=== PATIENT | male | born 1960 | race Caucasian/White ===

== ENCOUNTER 2021-09-02 06:38 | Inpatient (IN) ==
[~2021-09-02 06:38] MED LIST: Rocuronium 50 mg VIAL 10 mg/ml 5 ml VIAL (50 mg) ONE; Succinylcholine 200 mg VIAL 20 mg/ml 10 ml VIAL (200 mg) ONE
[2021-09-02] MEDS ORDERED: Etomidate 20 mg/10 ml 2 MG/ML 10 ml VIAL IV ONE (06:45)
[2021-09-02] MEDS ORDERED: Succinylcholine 200 mg VIAL 20 mg/ml 10 ml VIAL (200 mg) IV ONE (06:45)
[2021-09-02] MEDS ORDERED: Cefepime 1 GM in Dextrose 1 GM/50 ML BAG IV ONE (07:15)
[2021-09-02] MEDS ORDERED: Lactated Ringers 1000 ml BAG 1,000 ML IV ONE ×3 (07:15→10:01)
[2021-09-02] MEDS ORDERED: Vancomycin 1,500 MG in NS 0.9% 250 ml 250 ML IVPB ONE (07:15)
[2021-09-02] MEDS ORDERED: Propofol 10 mg/ml 100 ML BTL 100 ML IV ONE (07:15)
[2021-09-02 07:30] LABS: Hematocrit 40 % (42-52); Hemoglobin 13.4 g/dL (14.0-18.0); Mean Corpuscular HGB Conc 33 g/dL (31-36); Mean Corpuscular Hemoglobin 31 pg (27-31); Mean Corpuscular Volume 95 fL (80-94); Mean Platelet Volume 7.5 fL (7.4-10.4); Platelet Count 656 10^3/uL (150-450); Red Blood Count 4.25 10^6 /uL (4.18-5.48); Red Cell Distribution Width 14 % (10-15); White Blood Count 28.8 10^3/uL (3.5-10.8)
[2021-09-02 07:44] LABS: PCO2 Arterial 54 mmHg (35-45); PO2 Arterial 78 mmHg (80-100)
[2021-09-02 07:44] LABS: ALT 59 U/L (7-52); Albumin 2.2 g/dL (3.2-5.2); Albumin/Globulin Ratio 0.5 (1-3); Alkaline Phosphatase 144 U/L (35-149); Blood Urea Nitrogen 35 mg/dL (6-24); CO2 Carbon Dioxide 24 mmol/L (22-32); Calcium 7.1 mg/dL (8.6-10.3); Chloride 94 mmol/L (101-111); Globulin 4.1 g/dL (2-4); Glucose 142 mg/dL (70-100); Sodium 132 mmol/L (135-145); Total Protein 6.3 g/dL (6.4-8.9); eGFR CKD-EPI 77.2 (>60)
[2021-09-02] MEDS ORDERED: Piperacillin/Tazobac ADVAN 3.375 GM in NS 0.9% 100 ml BAG 100 ML IV ONE (07:46)
[2021-09-02 07:49] LABS: Troponin I 0.05 ng/mL (<0.03)
[2021-09-02] MEDS ORDERED: Zosyn per Pharmacy NOTE FOLLOW UP SCH (08:00)
[2021-09-02 08:23] LABS: Influenza A Molecular Negative (Negative); Influenza B Molecular Negative (Negative)
[2021-09-02 08:24] LABS: ABS Lymphocytes 1.1 10^3/ul (1.0-4.8); ABS Monocytes 0.2 10^3/ul (0-0.8); ABS Neutrophils 27.4 10^3/ul (1.5-7.7); Eosinophil % 0.1 %; Lymphocyte % 3.8 %
[2021-09-02 08:26] LABS: Urine Appearance Cloudy; Urine Bilirubin Negative (Negative); Urine Blood Negative (Negative); Urine Color Amber; Urine Glucose Negative (Negative); Urine Ketones Negative (Negative); Urine Nitrite Negative (Negative); Urine Protein Negative (Negative); Urine Specific Gravity 1.018 (1.002-1.030); Urine Urobilinogen Negative (Negative)
[2021-09-02 08:28] LABS: RBC Morphology Normal (Normal)
[2021-09-02 09:15] LABS: Rapid COVID-19 Molecular Undetected (Undetected)
[2021-09-02] MEDS: fentaNYL 100 mcg/2 ml 50 MCG/ML VIAL IV SLOW PU PRN ×5 (09:32→19:11)
[2021-09-02 09:48] LABS: Anion Gap 14 mmol/L (2-11)
[2021-09-02 09:55] LABS: Magnesium 2.3 mg/dL (1.9-2.7)
[2021-09-02 10:20] LABS: INR 1.55 (0.86-1.15)
[2021-09-02 11:38] LABS: Potassium Redraw 4.6 mmol/L (3.5-5.0)
[2021-09-02 11:48] LABS: Phosphorus 5.4 mg/dL (2.5-5.0)
[2021-09-02 12:24] LABS: Troponin I 0.24 ng/mL (<0.03)
[2021-09-02] MEDS ORDERED: Lactated Ringers 500 ml BAG 500 ML IV ONE (12:46)
[2021-09-02] MEDS: Chlorhexidine MOUTHWASH 0.12% 15 ML UDC TOPICAL SCH ×3 (12:51→20:58)
[2021-09-02] MEDS ORDERED: Vancomycin per Pharmacy 1 EA NOTE FOLLOW UP SCH (13:00)
[2021-09-02] MEDS ORDERED: Propofol 10 mg/ml 100 ML BTL 100 ML IV SCH ×2 (13:00)
[2021-09-02] MEDS ORDERED: fentaNYL 250 mcg/5 ml 50 MCG/ML 5 ml VIAL (250 MCG) ONE (13:56)
[2021-09-02] MEDS: Heparin 5000 UNITS/ML 1 mL VIAL SUBCUT SCH ×2 (13:58→23:12)
[2021-09-02] MEDS ORDERED: Norepinephrine 16MCG/ML IVPRE 4,000 MCG/250 ML BAG IV SCH (14:00)
[2021-09-02] MEDS: ZOSYN 3.375 GM Q8H per EXTENDED INFUSION IV SCH ×2 (15:30→22:55)
[2021-09-02 15:39] LABS: Troponin I 0.14 ng/mL (<0.03)
[2021-09-02] MEDS ORDERED: Acetaminophen IV 1 GM/100ML 100 ML IV PRN (16:50)
[2021-09-02] MEDS ORDERED: Propofol 10 mg/ml 100 ML BTL 0 ML ONE (17:05)
[2021-09-02] MEDS: fentaNYL INFUSION 50 mcg/mL VL 2,500 MCG/50 ML VIAL IV SCH (17:15)
[2021-09-02] MEDS ORDERED: Alteplase 10 MG/50 ML NS for CHEST TUBE instillation INTRAPLEUR ONE (18:00)
[2021-09-02] MEDS ORDERED: DORNASE ALFA 1 mg/ml 5 MG in NS 0.9% 50 ML INTRAPLEUR ONE (18:00)
[2021-09-02] MEDS ORDERED: ALTEPLASE ONE (18:00)
[2021-09-02] MEDS ORDERED: STERILE WATER FOR INJ ONE (18:00)
[2021-09-02 19:10] LABS: Troponin I 0.13 ng/mL (<0.03)
[2021-09-02] MEDS: Norepinephrine 16MCG/ML IVPRE 4,000 MCG/250 ML BAG IV SCH (19:53)
[2021-09-02] MEDS: Vancomycin 1000 MG in NS 0.9% 250 ML IVPB SCH (20:29)
[2021-09-03] MEDS: Chlorhexidine MOUTHWASH 0.12% 15 ML UDC TOPICAL SCH ×7 (00:31→21:19)
[2021-09-03] MEDS: fentaNYL INFUSION 50 mcg/mL VL 2,500 MCG/50 ML VIAL IV SCH ×2 (04:53→22:07)
[2021-09-03] MEDS: Heparin 5000 UNITS/ML 1 mL VIAL SUBCUT SCH ×3 (05:23→20:15)
[2021-09-03 05:27] LABS: Hematocrit 35 % (42-52); Hemoglobin 12.2 g/dL (14.0-18.0); Mean Corpuscular HGB Conc 35 g/dL (31-36); Mean Corpuscular Hemoglobin 32 pg (27-31); Mean Corpuscular Volume 92 fL (80-94); Mean Platelet Volume 7.1 fL (7.4-10.4); Platelet Count 521 10^3/uL (150-450); Red Blood Count 3.82 10^6 /uL (4.18-5.48); Red Cell Distribution Width 14 % (10-15); White Blood Count 20.1 10^3/uL (3.5-10.8)
[2021-09-03 05:28] LABS: ABS Basophils 0.1 10^3/ul (0-0.2); ABS Lymphocytes 0.6 10^3/ul (1.0-4.8); ABS Monocytes 0.1 10^3/ul (0-0.8); ABS Neutrophils 19.4 10^3/ul (1.5-7.7); Eosinophil % 0.1 %; Lymphocyte % 2.9 %
[2021-09-03 05:43] LABS: Activated Partial Thrombo Time 29.6 seconds (26.0-38.0); INR 1.47 (0.86-1.15)
[2021-09-03 05:45] LABS: Albumin/Globulin Ratio 0.6 (1-3); Calcium 7.5 mg/dL (8.6-10.3); Globulin 3.3 g/dL (2-4); Phosphorus 4.6 mg/dL (2.5-5.0); Potassium 4.8 mmol/L (3.5-5.0); Total Bilirubin 1.5 mg/dL (0.2-1.0); Total Protein 5.3 g/dL (6.4-8.9); eGFR CKD-EPI 97.5 (>60)
[2021-09-03] MEDS: ZOSYN 3.375 GM Q8H per EXTENDED INFUSION IV SCH ×3 (06:34→21:15)
[2021-09-03] MEDS: Pantoprazole VIAL 40 MG VIAL IV SCH (08:38)
[2021-09-03] MEDS: fentaNYL 100 mcg/2 ml 50 MCG/ML VIAL IV SLOW PU PRN (08:45)
[2021-09-03] MEDS ORDERED: Lorazepam PYXIS KEY PRN (08:46)
[2021-09-03] MEDS ORDERED: Lorazepam PYXIS KEY ONE (08:47)
[2021-09-03] MEDS ORDERED: LORazepam 2 mg VIAL 1 ml ONE (08:48)
[2021-09-03] MEDS: LORazepam 2 mg VIAL 1 ml IV PUSH PRN (08:52)
[2021-09-03] MEDS ORDERED: Metoprolol Tartrate 5 mg VIAL 5 ml VIAL (1 mg/ml) ONE (08:58)
[2021-09-03] MEDS ORDERED: Metoprolol Tartrate 5 mg VIAL 5 ml VIAL (1 mg/ml) IV ONE (08:59)
[2021-09-03] MEDS ORDERED: Alteplase 10 MG/50 ML NS for CHEST TUBE instillation INTRAPLEUR ONE (09:00)
[2021-09-03] MEDS ORDERED: DORNASE ALFA 1 mg/ml 5 MG in NS 0.9% 50 ML INTRAPLEUR ONE (09:00)
[2021-09-03] MEDS: Vancomycin 1000 MG in NS 0.9% 250 ML IVPB SCH ×2 (10:00→19:48)
[2021-09-03] MEDS: Lactated Ringers 1000 ml BAG 1,000 ML IV SCH ×2 (11:15→17:48)
[2021-09-03] MEDS ORDERED: Perflutren Lipid Microsphere 3 ML VIAL ONE (11:29)
[2021-09-03] MEDS: Norepinephrine 16MCG/ML IVPRE 4,000 MCG/250 ML BAG IV SCH (12:23)
[2021-09-03] MEDS: PHENYLEPHRINE DRIP IVPREMIX 50 MG/250 ML BAG IV SCH ×2 (13:01→20:03)
[2021-09-03] MEDS ORDERED: Hydrocortisone INJ 250 MG VIAL IV ONE (14:02)
[2021-09-03] MEDS: Metoprolol Tartrate 5 mg VIAL 5 ml VIAL (1 mg/ml) IV PRN ×2 (15:06→21:00)
[2021-09-03 17:22] LABS: Anion Gap 7 mmol/L (2-11); Blood Urea Nitrogen 36 mg/dL (6-24); CO2 Carbon Dioxide 27 mmol/L (22-32); Calcium 7.5 mg/dL (8.6-10.3); Chloride 101 mmol/L (101-111); Glucose 86 mg/dL (70-100); Potassium 4.9 mmol/L (3.5-5.0); Sodium 135 mmol/L (135-145); eGFR CKD-EPI 91.1 (>60)
[2021-09-03 17:38] LABS: Troponin I 0.07 ng/mL (<0.03)
[2021-09-03] MEDS ORDERED: Diltiazem IV push/loading dose 5 MG/ML 5 ML vial (25 mg) IV SLOW PU ONE ×2 (18:06)
[2021-09-03] MEDS ORDERED: Diltiazem IV push/loading dose 5 MG/ML 5 ML vial (25 mg) ONE (18:10)
[2021-09-03 19:44] LABS: Magnesium 2.3 mg/dL (1.9-2.7); Phosphorus 4.9 mg/dL (2.5-5.0)
[2021-09-03] MEDS: Hydrocortisone INJ 100 MG/2ML 2 ML VIAL IV SCH (20:16)
[2021-09-04] MEDS: Chlorhexidine MOUTHWASH 0.12% 15 ML UDC TOPICAL SCH ×6 (01:12→22:42)
[2021-09-04] MEDS ORDERED: DORNASE ALFA 1 mg/ml(NF) 5 MG in NS 0.9% 50 ML 45 ML INTRAPLEUR ONE (01:30)
[2021-09-04] MEDS ORDERED: Alteplase (CATHFLO) 10 MG in NS 0.9% 50 ML 40 ML INTRAPLEUR ONE (01:30)
[2021-09-04] MEDS: Lactated Ringers 1000 ml BAG 1,000 ML IV SCH ×3 (01:51→15:12)
[2021-09-04] MEDS: PHENYLEPHRINE DRIP IVPREMIX 50 MG/250 ML BAG IV SCH ×4 (01:58→21:32)
[2021-09-04 03:52] LABS: Hematocrit 36 % (42-52); Hemoglobin 11.9 g/dL (14.0-18.0); Mean Corpuscular HGB Conc 33 g/dL (31-36); Mean Corpuscular Hemoglobin 31 pg (27-31); Mean Corpuscular Volume 93 fL (80-94); Mean Platelet Volume 7.1 fL (7.4-10.4); Platelet Count 658 10^3/uL (150-450); Red Blood Count 3.85 10^6 /uL (4.18-5.48); Red Cell Distribution Width 15 % (10-15); White Blood Count 21.1 10^3/uL (3.5-10.8)
[2021-09-04] MEDS: Heparin 5000 UNITS/ML 1 mL VIAL SUBCUT SCH ×3 (04:04→21:22)
[2021-09-04] MEDS: Hydrocortisone INJ 100 MG/2ML 2 ML VIAL IV SCH ×3 (04:04→21:19)
[2021-09-04 04:08] LABS: Albumin 1.8 g/dL (3.2-5.2); Albumin/Globulin Ratio 0.6 (1-3); Calcium 7.4 mg/dL (8.6-10.3); Magnesium 2.4 mg/dL (1.9-2.7); Phosphorus 4.8 mg/dL (2.5-5.0); Potassium 4.8 mmol/L (3.5-5.0); Total Bilirubin 0.8 mg/dL (0.2-1.0); Total Protein 4.8 g/dL (6.4-8.9); eGFR CKD-EPI 92.2 (>60)
[2021-09-04 04:52] LABS: ABS Lymphocytes 0.7 10^3/ul (1.0-4.8); ABS Monocytes 0.4 10^3/ul (0-0.8); ABS Neutrophils 19.9 10^3/ul (1.5-7.7); Eosinophil % 0.1 %; Lymphocyte % 3.4 %
[2021-09-04] MEDS: ZOSYN 3.375 GM Q8H per EXTENDED INFUSION IV SCH ×3 (06:24→22:42)
[2021-09-04] MEDS ORDERED: Polyethylene Glycol 3350 17 GM PACKET PO PRN (08:20)
[2021-09-04] MEDS ORDERED: Vancomycin Trough Check NOTE FOLLOW UP ONE (08:30)
[2021-09-04 08:38] LABS: PCO2 Arterial 49 mmHg (35-45); PO2 Arterial 90 mmHg (80-100)
[2021-09-04 08:47] LABS: Vancomycin Trough 7.3 mcg/mL
[2021-09-04] MEDS ORDERED: Senna TAB 8.6 mg TAB PO SCH (09:00)
[2021-09-04] MEDS ORDERED: Docusate LIQ 100 MG/10 ML UDC PO SCH (09:00)
[2021-09-04] MEDS: Vancomycin 1000 MG in NS 0.9% 250 ML IVPB SCH ×2 (09:37→17:30)
[2021-09-04] MEDS: Magnesium Hydroxide LIQ 30 ML UDC PO SCH ×2 (09:38→20:17)
[2021-09-04] MEDS: Pantoprazole VIAL 40 MG VIAL IV SCH (09:38)
[2021-09-04] MEDS ORDERED: Midazolam 5 mg/5 ml VIAL 1 mg/ml 5 ml VIAL (5 mg) ONE (10:52)
[2021-09-04] MEDS ORDERED: fentaNYL 100 mcg/2 ml 50 MCG/ML VIAL ONE (10:52)
[2021-09-04] MEDS ORDERED: Propofol 10 MG/ML 20 ML BTL ONE (11:23)
[2021-09-04] MEDS: LORazepam 2 mg VIAL 1 ml IV PUSH PRN (13:27)
[2021-09-04] MEDS ORDERED: Phenylephrine IV 10 MG/ML 1 ml VIAL ONE (14:03)
[2021-09-04] MEDS ORDERED: Lactated Ringers 1000 ml BAG 1,000 ML IV SCH (18:49)
[2021-09-04] MEDS: fentaNYL INFUSION 50 mcg/mL VL 2,500 MCG/50 ML VIAL IV SCH (18:59)
[2021-09-05] MEDS: Vancomycin 1000 MG in NS 0.9% 250 ML IVPB SCH ×3 (00:27→16:26)
[2021-09-05] MEDS: Chlorhexidine MOUTHWASH 0.12% 15 ML UDC TOPICAL SCH ×6 (03:17→22:59)
[2021-09-05] MEDS: Hydrocortisone INJ 100 MG/2ML 2 ML VIAL IV SCH ×2 (05:31→13:44)
[2021-09-05] MEDS: Heparin 5000 UNITS/ML 1 mL VIAL SUBCUT SCH ×3 (05:31→22:22)
[2021-09-05 05:34] LABS: Hematocrit 30 % (42-52); Hemoglobin 9.9 g/dL (14.0-18.0); Mean Corpuscular HGB Conc 33 g/dL (31-36); Mean Corpuscular Hemoglobin 31 pg (27-31); Mean Corpuscular Volume 94 fL (80-94); Mean Platelet Volume 6.8 fL (7.4-10.4); Platelet Count 476 10^3/uL (150-450); Red Blood Count 3.22 10^6 /uL (4.18-5.48); Red Cell Distribution Width 14 % (10-15); White Blood Count 13.2 10^3/uL (3.5-10.8)
[2021-09-05 05:39] LABS: ABS Lymphocytes 0.7 10^3/ul (1.0-4.8); ABS Monocytes 0.2 10^3/ul (0-0.8); ABS Neutrophils 12.3 10^3/ul (1.5-7.7); Lymphocyte % 5.1 %
[2021-09-05 05:50] LABS: ALT 33 U/L (7-52); AST 53 U/L (13-39); Albumin < 1.7 g/dL (3.2-5.2); Albumin/Globulin Ratio 0.6 (1-3); Alkaline Phosphatase 78 U/L (35-149); Anion Gap 3 mmol/L (2-11); Blood Urea Nitrogen 42 mg/dL (6-24); CO2 Carbon Dioxide 29 mmol/L (22-32); Calcium 7.3 mg/dL (8.6-10.3); Chloride 110 mmol/L (101-111); Globulin 2.8 g/dL (2-4); Glucose 158 mg/dL (70-100); Magnesium 2.6 mg/dL (1.9-2.7); Phosphorus 2.9 mg/dL (2.5-5.0); Potassium 4.9 mmol/L (3.5-5.0); Sodium 142 mmol/L (135-145); Total Protein 4.5 g/dL (6.4-8.9); eGFR CKD-EPI 88.8 (>60)
[2021-09-05] MEDS: ZOSYN 3.375 GM Q8H per EXTENDED INFUSION IV SCH ×3 (05:52→22:22)
[2021-09-05] MEDS: PHENYLEPHRINE DRIP IVPREMIX 50 MG/250 ML BAG IV SCH (06:27)
[2021-09-05] MEDS: Magnesium Hydroxide LIQ 30 ML UDC PO SCH ×2 (09:05→20:36)
[2021-09-05] MEDS: Polyethylene Glycol 3350 17 GM PACKET PO SCH (09:05)
[2021-09-05] MEDS: Docusate LIQ 100 MG/10 ML UDC PO SCH ×2 (09:05→20:36)
[2021-09-05] MEDS: Senna TAB 8.6 mg TAB PO SCH ×2 (09:05→20:36)
[2021-09-05] MEDS: Pantoprazole VIAL 40 MG VIAL IV SCH (09:05)
[2021-09-05] MEDS ORDERED: DORNASE ALFA 1 mg/ml(NF) 5 MG in NS 0.9% 50 ML 45 ML INTRAPLEUR SCH ×2 (14:00→16:00)
[2021-09-05] MEDS: fentaNYL INFUSION 50 mcg/mL VL 2,500 MCG/50 ML VIAL IV SCH (15:36)
[2021-09-05] MEDS ORDERED: Alteplase (CATHFLO) 10 MG in NS 0.9% 50 ML 40 ML INTRAPLEUR SCH (16:00)
[2021-09-05] MEDS ORDERED: Vancomycin Trough Check NOTE FOLLOW UP ONE (16:30)
[2021-09-06] MEDS: Hydrocortisone INJ 100 MG/2ML 2 ML VIAL IV SCH ×2 (02:47→14:38)
[2021-09-06] MEDS: Chlorhexidine MOUTHWASH 0.12% 15 ML UDC TOPICAL SCH ×6 (02:52→22:41)
[2021-09-06 05:48] LABS: Hematocrit 28 % (42-52); Hemoglobin 9.5 g/dL (14.0-18.0); Mean Corpuscular HGB Conc 34 g/dL (31-36); Mean Corpuscular Hemoglobin 31 pg (27-31); Mean Corpuscular Volume 94 fL (80-94); Mean Platelet Volume 6.8 fL (7.4-10.4); Platelet Count 381 10^3/uL (150-450); Red Blood Count 3.01 10^6 /uL (4.18-5.48); Red Cell Distribution Width 14 % (10-15); White Blood Count 8.9 10^3/uL (3.5-10.8)
[2021-09-06] MEDS: Heparin 5000 UNITS/ML 1 mL VIAL SUBCUT SCH ×4 (05:48→22:43)
[2021-09-06 05:53] LABS: INR 1.12 (0.86-1.15)
[2021-09-06] MEDS ORDERED: Vancomycin 1,250 MG in NS 0.9% 250 ml 250 ML IVPB SCH (06:00)
[2021-09-06 06:01] LABS: Calcium 7.3 mg/dL (8.6-10.3); Magnesium 2.6 mg/dL (1.9-2.7)
[2021-09-06 06:06] LABS: Phosphorus 2.7 mg/dL (2.5-5.0); eGFR CKD-EPI 89.9 (>60)
[2021-09-06] MEDS: ZOSYN 3.375 GM Q8H per EXTENDED INFUSION IV SCH ×3 (06:11→22:46)
[2021-09-06] MEDS: Pantoprazole VIAL 40 MG VIAL IV SCH (07:49)
[2021-09-06] MEDS ORDERED: Magnesium CITRATE LIQ 300 ML BTL PO ONE (08:00)
[2021-09-06] MEDS ORDERED: Methylnaltrexone SQ (NF) 12 MG/0.6 ML VIAL SUBCUT ONE (08:04)
[2021-09-06] MEDS ORDERED: Furosemide 20 mg/2 ml IV VIAL IV SLOW PU ONE ×2 (10:41→17:45)
[2021-09-06] MEDS: Docusate LIQ 100 MG/10 ML UDC PO SCH (11:44)
[2021-09-06] MEDS: Magnesium Hydroxide LIQ 30 ML UDC PO SCH (11:45)
[2021-09-06] MEDS: Polyethylene Glycol 3350 17 GM PACKET PO SCH (11:45)
[2021-09-06] MEDS: Senna TAB 8.6 mg TAB PO SCH (11:45)
[2021-09-06] MEDS ORDERED: Midazolam 2 mg/2 ml VIAL 1 mg/ml 2 ml VIAL (2 mg) ONE (12:43)
[2021-09-06] MEDS ORDERED: Lidocaine 1% VIAL 10 MG/ML VIAL ONE (12:43)
[2021-09-06] MEDS ORDERED: Midazolam 2 mg/2 ml VIAL 1 mg/ml 2 ml VIAL (2 mg) IV SLOW PU ONE (13:10)
[2021-09-06] MEDS: fentaNYL INFUSION 50 mcg/mL VL 2,500 MCG/50 ML VIAL IV SCH (14:30)
[2021-09-07] MEDS: Chlorhexidine MOUTHWASH 0.12% 15 ML UDC TOPICAL SCH ×3 (03:31→11:09)
[2021-09-07] MEDS: Hydrocortisone INJ 100 MG/2ML 2 ML VIAL IV SCH (03:31)
[2021-09-07] MEDS ORDERED: Vancomycin Trough Check NOTE FOLLOW UP ONE (05:30)
[2021-09-07] MEDS: Heparin 5000 UNITS/ML 1 mL VIAL SUBCUT SCH ×4 (05:37→22:12)
[2021-09-07 06:01] LABS: Calcium 7.5 mg/dL (8.6-10.3); Magnesium 2.5 mg/dL (1.9-2.7); Phosphorus 2.9 mg/dL (2.5-5.0); Potassium 3.8 mmol/L (3.5-5.0); eGFR CKD-EPI 80.8 (>60)
[2021-09-07] MEDS: ZOSYN 3.375 GM Q8H per EXTENDED INFUSION IV SCH ×3 (06:03→22:00)
[2021-09-07] MEDS ORDERED: Potassium Chloride LIQUID 20 MEQ/15 ML LIQUID PO ONE (06:48)
[2021-09-07] MEDS ORDERED: Furosemide 20 mg/2 ml IV VIAL IV SLOW PU ONE (08:51)
[2021-09-07] MEDS ORDERED: Hydrocortisone INJ 100 MG/2ML 2 ML VIAL ONE (08:53)
[2021-09-07] MEDS: Pantoprazole VIAL 40 MG VIAL IV SCH (09:02)
[2021-09-07] MEDS ORDERED: Haloperidol 5 mg/ml SDV IV/IM 5 MG/ML AMP IV SLOW PU ONE (21:42)
[2021-09-08] MEDS ORDERED: Haloperidol 5 mg/ml SDV IV/IM 5 MG/ML AMP IV SLOW PU ONE (05:22)
[2021-09-08] MEDS: Heparin 5000 UNITS/ML 1 mL VIAL SUBCUT SCH ×3 (05:52→21:31)
[2021-09-08] MEDS: ZOSYN 3.375 GM Q8H per EXTENDED INFUSION IV SCH (05:52)
[2021-09-08] MEDS ORDERED: Hydrocortisone INJ 100 MG/2ML 2 ML VIAL IV SCH (06:00)
[2021-09-08 07:39] LABS: Calcium 7.3 mg/dL (8.6-10.3); Potassium 3.5 mmol/L (3.5-5.0)
[2021-09-08 07:44] LABS: Phosphorus 3.1 mg/dL (2.5-5.0); eGFR CKD-EPI 98.9 (>60)
[2021-09-08] MEDS: Pantoprazole VIAL 40 MG VIAL IV SCH (08:47)
[2021-09-08] MEDS: Oxacillin 2 GM in NS 0.9% 100 ml BAG 100 ML IVPB SCH ×3 (10:23→21:31)
[2021-09-08] MEDS: Chlorhexidine MOUTHWASH 0.12% 15 ML UDC TOPICAL SCH (14:14)
[2021-09-09] MEDS: Oxacillin 2 GM in NS 0.9% 100 ml BAG 100 ML IVPB SCH ×4 (03:37→21:49)
[2021-09-09 04:21] LABS: Hematocrit 29 % (42-52); Mean Corpuscular HGB Conc 35 g/dL (31-36); Mean Corpuscular Hemoglobin 32 pg (27-31); Mean Corpuscular Volume 91 fL (80-94); Mean Platelet Volume 7.2 fL (7.4-10.4); Platelet Count 436 10^3/uL (150-450); Red Blood Count 3.18 10^6 /uL (4.18-5.48); Red Cell Distribution Width 14 % (10-15)
[2021-09-09 04:38] LABS: Calcium 7.3 mg/dL (8.6-10.3); Magnesium 1.9 mg/dL (1.9-2.7); Phosphorus 3.1 mg/dL (2.5-5.0); eGFR CKD-EPI 99.9 (>60)
[2021-09-09] MEDS ORDERED: Potassium Chloride LIQUID 20 MEQ/15 ML LIQUID PO ONE (04:52)
[2021-09-09] MEDS: KCL 20 MEQ/100 ML IVPREMIX 20 MEQ/100 ML BAG IV SCH ×3 (05:14→09:52)
[2021-09-09] MEDS: Heparin 5000 UNITS/ML 1 mL VIAL SUBCUT SCH ×4 (05:48→21:49)
[2021-09-09] MEDS: Pantoprazole VIAL 40 MG VIAL IV SCH (08:12)
[2021-09-09] MEDS ORDERED: Magnesium Sulfate IV 1GM/100ML 1 GM/100 ML BAG IV ONE (09:00)
[2021-09-10] MEDS: Oxacillin 2 GM in NS 0.9% 100 ml BAG 100 ML IVPB SCH ×4 (04:33→20:23)
[2021-09-10 05:19] LABS: Calcium 7.2 mg/dL (8.6-10.3); Phosphorus 2.4 mg/dL (2.5-5.0); Potassium 3.5 mmol/L (3.5-5.0); eGFR CKD-EPI 106.2 (>60)
[2021-09-10] MEDS: Heparin 5000 UNITS/ML 1 mL VIAL SUBCUT SCH ×3 (05:55→20:23)
[2021-09-10] MEDS: KCL 20 MEQ/100 ML IVPREMIX 20 MEQ/100 ML BAG IV SCH ×2 (09:04→11:51)
[2021-09-10] MEDS: Pantoprazole VIAL 40 MG VIAL IV SCH (09:04)
[2021-09-11] MEDS: Oxacillin 2 GM in NS 0.9% 100 ml BAG 100 ML IVPB SCH ×4 (03:50→20:26)
[2021-09-11 05:08] LABS: Hematocrit 31 % (42-52); Hemoglobin 10.3 g/dL (14.0-18.0); Mean Corpuscular HGB Conc 34 g/dL (31-36); Mean Corpuscular Hemoglobin 31 pg (27-31); Mean Corpuscular Volume 92 fL (80-94); Mean Platelet Volume 7.4 fL (7.4-10.4); Platelet Count 503 10^3/uL (150-450); Red Blood Count 3.32 10^6 /uL (4.18-5.48); Red Cell Distribution Width 15 % (10-15); White Blood Count 11.7 10^3/uL (3.5-10.8)
[2021-09-11 05:28] LABS: ABS Eosinophils 0.2 10^3/ul (0-0.6); ABS Lymphocytes 1.2 10^3/ul (1.0-4.8); ABS Monocytes 0.5 10^3/ul (0-0.8); ABS Neutrophils 9.7 10^3/ul (1.5-7.7); Eosinophil % 1.7 %; Lymphocyte % 10.6 %
[2021-09-11 05:33] LABS: Calcium 7.3 mg/dL (8.6-10.3); Magnesium 1.8 mg/dL (1.9-2.7); Phosphorus 2.4 mg/dL (2.5-5.0); Potassium 3.7 mmol/L (3.5-5.0); eGFR CKD-EPI 107.7 (>60)
[2021-09-11] MEDS: Heparin 5000 UNITS/ML 1 mL VIAL SUBCUT SCH ×3 (06:06→20:26)
[2021-09-11] MEDS ORDERED: Potassium Chlor 20 meq TAB.ER PO ONE (07:39)
[2021-09-11] MEDS ORDERED: Magnesium Sulfate 2 gm BAG 2 GM/50 ML BAG IVPB ONE (07:40)
[2021-09-11] MEDS ORDERED: Potassium Phosphate IV 15 MMOLE in NS 0.9% 250 ml 250 ML IVPB ONE (07:41)
[2021-09-11] MEDS: Pantoprazole VIAL 40 MG VIAL IV SCH (08:01)
[2021-09-12] MEDS: Oxacillin 2 GM in NS 0.9% 100 ml BAG 100 ML IVPB SCH ×4 (04:22→21:57)
[2021-09-12 04:26] LABS: ABS Eosinophils 0.2 10^3/ul (0-0.6); ABS Lymphocytes 1.2 10^3/ul (1.0-4.8); ABS Monocytes 0.6 10^3/ul (0-0.8); ABS Neutrophils 11.3 10^3/ul (1.5-7.7); Eosinophil % 1.7 %; Hematocrit 33 % (42-52); Hemoglobin 11.1 g/dL (14.0-18.0); Lymphocyte % 8.9 %; Mean Corpuscular HGB Conc 33 g/dL (31-36); Mean Corpuscular Hemoglobin 31 pg (27-31); Mean Corpuscular Volume 93 fL (80-94); Mean Platelet Volume 7.2 fL (7.4-10.4); Platelet Count 565 10^3/uL (150-450); Red Blood Count 3.58 10^6 /uL (4.18-5.48); Red Cell Distribution Width 14 % (10-15); White Blood Count 13.4 10^3/uL (3.5-10.8)
[2021-09-12 04:44] LABS: Calcium 7.4 mg/dL (8.6-10.3); Phosphorus 2.6 mg/dL (2.5-5.0); Potassium 3.7 mmol/L (3.5-5.0); eGFR CKD-EPI 102.3 (>60)
[2021-09-12] MEDS: Heparin 5000 UNITS/ML 1 mL VIAL SUBCUT SCH ×3 (05:41→21:57)
[2021-09-12] MEDS ORDERED: Potassium Chlor 20 meq TAB.ER PO ONE (07:02)
[2021-09-12] MEDS ORDERED: Furosemide 40 mg/4 ml IV VIAL IV SLOW PU ONE (09:01)
[2021-09-12] MEDS ORDERED: Albuterol HFA INHALER 8 gm MDI INH PRN (09:01)
[2021-09-12] MEDS ORDERED: Albuterol HFA INHALER 8 gm MDI INH SCH (11:00)
[2021-09-13 00:16] LABS: Calcium 7.3 mg/dL (8.6-10.3); Magnesium 1.6 mg/dL (1.9-2.7); Potassium 3.5 mmol/L (3.5-5.0); eGFR CKD-EPI 101.5 (>60)
[2021-09-13] MEDS ORDERED: Potassium Chlor 20 meq TAB.ER PO ONE (00:31)
[2021-09-13] MEDS ORDERED: Magnesium Sulfate 2 gm BAG 2 GM/50 ML BAG IVPB ONE (00:31)
[2021-09-13] MEDS: Oxacillin 2 GM in NS 0.9% 100 ml BAG 100 ML IVPB SCH ×2 (04:55→10:04)
[2021-09-13 06:15] LABS: ABS Basophils 0.1 10^3/ul (0-0.2); ABS Eosinophils 0.1 10^3/ul (0-0.6); ABS Monocytes 0.9 10^3/ul (0-0.8); ABS Neutrophils 9.5 10^3/ul (1.5-7.7); Eosinophil % 1.3 %; Hematocrit 31 % (42-52); Hemoglobin 10.3 g/dL (14.0-18.0); Lymphocyte % 8.6 %; Mean Corpuscular HGB Conc 34 g/dL (31-36); Mean Corpuscular Hemoglobin 31 pg (27-31); Mean Corpuscular Volume 93 fL (80-94); Mean Platelet Volume 7.7 fL (7.4-10.4); Platelet Count 521 10^3/uL (150-450); Red Blood Count 3.32 10^6 /uL (4.18-5.48); Red Cell Distribution Width 15 % (10-15); White Blood Count 11.6 10^3/uL (3.5-10.8)
[2021-09-13] MEDS: Heparin 5000 UNITS/ML 1 mL VIAL SUBCUT SCH ×3 (06:21→23:05)
[2021-09-13 06:38] LABS: Calcium 7.4 mg/dL (8.6-10.3); Phosphorus 2.8 mg/dL (2.5-5.0); Potassium 3.8 mmol/L (3.5-5.0); eGFR CKD-EPI 103.9 (>60)
[2021-09-13 11:19] LABS: C Reactive Protein 78.85 mg/L (<8.01)
[2021-09-13] MEDS: ceFAZolin 2 GM in NS PREMIX 2 GM/100 ML BAG IVPB SCH (20:41)
[2021-09-14] MEDS: ceFAZolin 2 GM in NS PREMIX 2 GM/100 ML BAG IVPB SCH ×3 (05:28→12:09)
[2021-09-14] MEDS: Heparin 5000 UNITS/ML 1 mL VIAL SUBCUT SCH ×2 (05:28→15:34)
[2021-09-14] MEDS ORDERED: diPHENhydraMINE IV 50 MG/ML 1 ml VIAL (BENADRYL) IV ONE (05:35)
[2021-09-14] MEDS ORDERED: Clindamycin 600 MG/D5W BAG 600 MG/50 ML BAG IV SCH (06:00)
[2021-09-14 07:03] LABS: ABS Eosinophils 0.2 10^3/ul (0-0.6); ABS Lymphocytes 1.1 10^3/ul (1.0-4.8); ABS Monocytes 0.9 10^3/ul (0-0.8); Eosinophil % 2.1 %; Hematocrit 29 % (42-52); Lymphocyte % 10.5 %; Mean Corpuscular HGB Conc 34 g/dL (31-36); Mean Corpuscular Hemoglobin 32 pg (27-31); Mean Corpuscular Volume 93 fL (80-94); Mean Platelet Volume 7.6 fL (7.4-10.4); Platelet Count 600 10^3/uL (150-450); Red Blood Count 3.17 10^6 /uL (4.18-5.48); Red Cell Distribution Width 15 % (10-15); White Blood Count 10.2 10^3/uL (3.5-10.8)
[2021-09-14 07:23] LABS: Calcium 7.3 mg/dL (8.6-10.3); Magnesium 1.6 mg/dL (1.9-2.7); Phosphorus 2.3 mg/dL (2.5-5.0); Potassium 3.6 mmol/L (3.5-5.0); eGFR CKD-EPI 105.8 (>60)
[2021-09-14] MEDS ORDERED: ceFAZolin VIAL 2 GM in NS 0.9% 100 ml BAG 100 ML IVPB SCH (12:00)
[2021-09-15] MEDS: ceFAZolin 2 GM in NS PREMIX 2 GM/100 ML BAG IVPB SCH ×4 (00:16→21:13)
[2021-09-15] MEDS: Heparin 5000 UNITS/ML 1 mL VIAL SUBCUT SCH ×4 (00:16→22:13)
[2021-09-15] MEDS: diPHENhydraMINE 25 mg TAB PO PRN ×2 (00:41→14:37)
[2021-09-15 11:32] LABS: ABS Basophils 0.1 10^3/ul (0-0.2); ABS Eosinophils 0.3 10^3/ul (0-0.6); ABS Lymphocytes 1.3 10^3/ul (1.0-4.8); ABS Monocytes 0.9 10^3/ul (0-0.8); ABS Neutrophils 8.8 10^3/ul (1.5-7.7); Eosinophil % 2.2 %; Hematocrit 34 % (42-52); Hemoglobin 11.5 g/dL (14.0-18.0); Lymphocyte % 11.2 %; Mean Corpuscular HGB Conc 34 g/dL (31-36); Mean Corpuscular Hemoglobin 31 pg (27-31); Mean Corpuscular Volume 92 fL (80-94); Mean Platelet Volume 7.6 fL (7.4-10.4); Platelet Count 726 10^3/uL (150-450); Red Blood Count 3.71 10^6 /uL (4.18-5.48); Red Cell Distribution Width 16 % (10-15); White Blood Count 11.4 10^3/uL (3.5-10.8)
[2021-09-15 11:59] LABS: Albumin 2.5 g/dL (3.2-5.2); Albumin/Globulin Ratio 0.7 (1-3); C Reactive Protein 65.94 mg/L (<8.01); Calcium 8.2 mg/dL (8.6-10.3); Globulin 3.6 g/dL (2-4); Magnesium 1.8 mg/dL (1.9-2.7); Potassium 3.9 mmol/L (3.5-5.0); Total Bilirubin 0.6 mg/dL (0.2-1.0); Total Protein 6.1 g/dL (6.4-8.9); eGFR CKD-EPI 103.9 (>60)
[2021-09-15] MEDS ORDERED: Magnesium Sulfate 2 gm BAG 2 GM/50 ML BAG IVPB ONE (14:56)
[2021-09-16] MEDS: ceFAZolin 2 GM in NS PREMIX 2 GM/100 ML BAG IVPB SCH ×3 (03:19→20:28)
[2021-09-16] MEDS: Heparin 5000 UNITS/ML 1 mL VIAL SUBCUT SCH ×3 (06:24→22:38)
[2021-09-16 07:23] LABS: Albumin 2.3 g/dL (3.2-5.2); Albumin/Globulin Ratio 0.8 (1-3); C Reactive Protein 48.27 mg/L (<8.01); Calcium 7.6 mg/dL (8.6-10.3); Potassium 3.9 mmol/L (3.5-5.0); Total Bilirubin 0.5 mg/dL (0.2-1.0); Total Protein 5.3 g/dL (6.4-8.9); eGFR CKD-EPI 103.5 (>60)
[2021-09-16 07:42] LABS: ABS Basophils 0.1 10^3/ul (0-0.2); ABS Eosinophils 0.2 10^3/ul (0-0.6); ABS Lymphocytes 1.3 10^3/ul (1.0-4.8); ABS Monocytes 0.7 10^3/ul (0-0.8); Eosinophil % 2.8 %; Hematocrit 31 % (42-52); Hemoglobin 10.2 g/dL (14.0-18.0); Lymphocyte % 15.3 %; Mean Corpuscular HGB Conc 33 g/dL (31-36); Mean Corpuscular Hemoglobin 31 pg (27-31); Mean Corpuscular Volume 95 fL (80-94); Mean Platelet Volume 7.4 fL (7.4-10.4); Platelet Count 592 10^3/uL (150-450); Red Blood Count 3.29 10^6 /uL (4.18-5.48); Red Cell Distribution Width 16 % (10-15); White Blood Count 8.3 10^3/uL (3.5-10.8)
[2021-09-17] MEDS: ceFAZolin 2 GM in NS PREMIX 2 GM/100 ML BAG IVPB SCH ×3 (03:39→20:37)
[2021-09-17] MEDS: Heparin 5000 UNITS/ML 1 mL VIAL SUBCUT SCH ×3 (06:08→20:36)
[2021-09-18] MEDS: ceFAZolin 2 GM in NS PREMIX 2 GM/100 ML BAG IVPB SCH ×3 (04:16→21:14)
[2021-09-18] MEDS: Heparin 5000 UNITS/ML 1 mL VIAL SUBCUT SCH ×3 (05:51→21:18)
[2021-09-18 18:32] LABS: Hematocrit 24 % (42-52); Hemoglobin 8.3 g/dL (14.0-18.0); Mean Corpuscular HGB Conc 34 g/dL (31-36); Mean Corpuscular Hemoglobin 32 pg (27-31); Mean Corpuscular Volume 94 fL (80-94); Mean Platelet Volume 7.7 fL (7.4-10.4); Platelet Count 486 10^3/uL (150-450); Red Blood Count 2.59 10^6 /uL (4.18-5.48); Red Cell Distribution Width 16 % (10-15); White Blood Count 7.5 10^3/uL (3.5-10.8)
[2021-09-18 18:45] LABS: Albumin 2.2 g/dL (3.2-5.2); Albumin/Globulin Ratio 0.7 (1-3); C Reactive Protein 15.65 mg/L (<8.01); Calcium 7.6 mg/dL (8.6-10.3); Globulin 3.1 g/dL (2-4); Total Bilirubin 0.4 mg/dL (0.2-1.0); Total Protein 5.3 g/dL (6.4-8.9); eGFR CKD-EPI 103.5 (>60)
[2021-09-18 20:11] LABS: ABS Eosinophils 0.4 10^3/ul (0-0.6); ABS Lymphocytes 1.1 10^3/ul (1.0-4.8); ABS Monocytes 0.6 10^3/ul (0-0.8); ABS Neutrophils 5.3 10^3/ul (1.5-7.7); Eosinophil % 5.4 %; Lymphocyte % 15.2 %; Nucleated Red Blood Cells % 0.1
[2021-09-19] MEDS: ceFAZolin 2 GM in NS PREMIX 2 GM/100 ML BAG IVPB SCH ×3 (04:38→20:09)
[2021-09-19] MEDS: Heparin 5000 UNITS/ML 1 mL VIAL SUBCUT SCH ×3 (06:40→23:44)
[2021-09-20] MEDS: ceFAZolin 2 GM in NS PREMIX 2 GM/100 ML BAG IVPB SCH ×3 (04:36→20:15)
[2021-09-20] MEDS: Heparin 5000 UNITS/ML 1 mL VIAL SUBCUT SCH ×3 (05:44→21:38)
[2021-09-21] MEDS: ceFAZolin 2 GM in NS PREMIX 2 GM/100 ML BAG IVPB SCH ×2 (05:35→12:31)
[2021-09-21] MEDS: Heparin 5000 UNITS/ML 1 mL VIAL SUBCUT SCH ×2 (06:28→13:43)
[2021-09-21 06:49] LABS: ABS Eosinophils 0.7 10^3/ul (0-0.6); ABS Monocytes 0.6 10^3/ul (0-0.8); ABS Neutrophils 5.7 10^3/ul (1.5-7.7); Eosinophil % 8.6 %; Hematocrit 29 % (42-52); Hemoglobin 9.9 g/dL (14.0-18.0); Lymphocyte % 12.5 %; Mean Corpuscular HGB Conc 34 g/dL (31-36); Mean Corpuscular Hemoglobin 32 pg (27-31); Mean Corpuscular Volume 93 fL (80-94); Platelet Count 451 10^3/uL (150-450); Red Blood Count 3.12 10^6 /uL (4.18-5.48); Red Cell Distribution Width 17 % (10-15); White Blood Count 8.2 10^3/uL (3.5-10.8)
[2021-09-21 15:45] VITALS: BP 121/75
== END 2021-09-21 17:13 | disposition short-term general hospital (02) | DRG 720 ==
LOC: ED 06:38 → SUATTDRO 07:54 → EDHOLD 07:54 → ICU 10:20 → SSU 09-12 13:06
PROVIDERS: ADMIT Internal Medicine; ATTEND Internal Medicine
PROC: O.CATEE (2021-09-04 13:15)